=== PATIENT | female | born 1965 | race Two or more races ===

== ENCOUNTER → 2022-05-18 | Outpatient (CLI) | payer OTHER, SELFPAY ==
--- NOTE | 2022-05-18 | EMB_PTH ---
PATIENT: CASSIE EDWARDS LOC: [facility] U#:[id number] AGE/SX: 56/F ROOM: RE05/18/[address]: Dr. Anabel Weaver, : 1965 BED: DIS: 05/18/2022 SPEC #: [id number] RECD: 05/18/22 17:04 STATUS: DIEUDONNE CEDENO #: [id number] ABHISHEK: 05/18/22 00:[address]: Anabel Weaver DEPT: SURGICAL PATHOLOGY RECD BY: Breanne Petit Tissues: Endometrium, NOS Procedures: Surgery Specimen Level IV HEADER OPERATION: Endometrial biopsy, polypectomy PRE-OP DIAGNOSIS: Abnormal uterine bleeding, PMB TISSUE SUBMITTED: Endometrial biopsy, cervical polyp MICROSCOPIC DIAGNOSIS Endometrial biopsy, cervical polyp, polypectomy: Strips of benign endometrial epithelium, consistent with atrophic endometrium. Fragments of benign ecto- and endocervical epithelium and mucous See comment. CONNER:casa 05/20/2022 COMMENT Obvious polyp is not identified. MICROSCOPIC DESCRIPTION Slides are reviewed. GROSS DESCRIPTION Received is one container labeled with the patient's name and not further designated. The specimen consists of multiple irregular fragments of mucoid material that in aggregate measure 2.5 x 1.0 x 0.1 cm. The specimen is totally submitted in one cassette. / AM:casa 05/19/2022 TC:4 [facility]: [id number]
[2022-05-26 13:02] LABS: HPV APTIMA, High Risk Negative (Negative)
== END | disposition home or self-care (01) ==
LOC: LABSPEC 16:54
PROVIDERS: Visit Provider Student in an Organized Health Care Education/Training Program
DX: Z12.4 Encounter for screening for malignant neoplasm of cervix (principal); N95.0 Postmenopausal bleeding
CPT/HCPCS: 87624; 88175; 88305; G0145

== ENCOUNTER → 2022-08-17 | Outpatient (CLI) | payer OTHER, SELFPAY ==
[2022-08-19 09:08] LABS: HPV APTIMA, High Risk Negative (Negative)
== END | disposition home or self-care (01) ==
LOC: LABSPEC 11:16
PROVIDERS: Visit Provider Student in an Organized Health Care Education/Training Program
DX: Z12.4 Encounter for screening for malignant neoplasm of cervix (principal)
CPT/HCPCS: 87624; 88175; G0145